=== PATIENT | male | born 1965 | race Caucasian/White ===

== ENCOUNTER 2018-06-03 22:52 | Emergency (ER) | payer MEDICAID ==
[~2018-06-03] VITALS: Ht 185.4 cm; Wt 86.2 kg
[2018-06-03] MEDS ORDERED: BACTRIM DS TAB1 EACH PO (23:20)
[2018-06-04] MEDS ORDERED: BACTRIM DS TAB1 EACH PO (00:06)
== END 2018-06-04 00:29 | disposition home or self-care (01) ==
LOC: ED 22:52
DX: L02.01 Cutaneous abscess of face (principal); L03.211 Cellulitis of face; Z86.14 Personal history of Methicillin resistant Staphylococcus aureus infection
CPT/HCPCS: 96372; 99283; J0696